=== PATIENT | female | born 1970 | race Caucasian/White ===

== ENCOUNTER 2016-07-20 07:46 | Day surgery (SDC) | payer BC ==
[2016-07-17 10:43] LABS: BILIRUBIN,URINE NEGATIVE (NEGATIVE); CLARITY/URINE CLEAR (CLEAR); COLOR,URINE YELLOW (YELLOW); GLUCOSE,URINE NEGATIVE (NEGATIVE); KETONES,URINE NEGATIVE (NEGATIVE); LEUKOCYTE ESTERASE ,URINE 1+ (NEGATIVE); NITRITE, URINE NEGATIVE (NEGATIVE); PROTEIN URINE NEGATIVE (NEGATIVE); UROBILINOGEN,URINE 0.2 (0.2-1.0)
[2016-07-17 10:45] LABS: BLOOD, URINE TRACE (NEGATIVE)
[2016-07-17 10:49] LABS: BASOPHILS # (AUTO) 0.1 K/uL (0.0-0.2); BASOPHILS % (AUTO) 1.3 % (0.0-2.0); EOSINOPHILS % (AUTO) 0.5 % (0.0-4.0); HEMATOCRIT 34.1 % (36-48); HEMOGLOBIN 10.9 g/dL (12.0-16.0); LYMPHOCYTES % (AUTO) 34.4 % (20.5-51.5); MEAN CORPUSCULAR HEMOGLOBIN 23 pg (27-31); MEAN CORPUSCULAR HGB CONC 32 % (32-36); MEAN CORPUSCULAR VOLUME 72 fL (79.0-98.0); MONOCYTES # (AUTO) 0.5 K/uL (0.0-1.0); MONOCYTES % (AUTO) 8.1 % (1.7-9.3); NEUTROPHILS # (AUTO) 3.2 K/uL (1.8-7.7); NEUTROPHILS % (AUTO) 55.7 % (40.0-70.0); PLATELET COUNT (AUTO) 274 K/uL (130-430); RED BLOOD CELL COUNT(AUTO) 4.71 MIL/uL (4.2-6.2); WHITE BLOOD COUNT (AUTO) 5.8 K/uL (4.8-10.8)
[2016-07-17 10:52] LABS: BACTERIA,URINE FEW /HPF (None Seen); CALCIUM 8.9 mg/dL (8.4-11.0); CREATININE 0.68 mg/dL (0.55-1.30); POTASSIUM 3.9 mmol/L (3.5-5.1); RBC,URINE 0-3 /HPF (0-3)
[2016-07-17 10:53] LABS: MUCUS,URINE None Seen /LPF (None Seen)
[~2016-07-20] VITALS: Ht 157.5 cm; Wt 65.8 kg
[2016-07-20] MEDS ORDERED: SEVOFLURANE 15 MIN GAS INH ONE (11:30)
[2016-07-20] MEDS ORDERED: PROPOFOL 200MG/ 20ML VIAL (DIPRIVAN) IV ONE (11:30)
[2016-07-20] MEDS ORDERED: METOCLOPRAMIDE HCL 10 MG/2 ML VIAL IVP ONE (11:30)
[2016-07-20] MEDS ORDERED: KETOROLAC TROMETHAMINE 30 MG VIAL IVP ONE (11:30)
[2016-07-20] MEDS ORDERED: ONDANSETRON HCL 4 MG/2 ML VIAL IVP ONE (11:30)
[2016-07-20] MEDS ORDERED: fentaNYL CITRATE 250 MCG/5 ML AMP IV ONE (11:30)
[2016-07-20] MEDS ORDERED: MIDAZOLAM HCL 5 MG/5 ML VIAL IVP ONE (11:30)
[2016-07-20] MEDS ORDERED: LR 1,000 ML IV SCH (11:45)
[2016-07-20] MEDS ORDERED: METOCLOPRAMIDE HCL 10 MG/2 ML VIAL IVP PRN (11:45)
[2016-07-20] MEDS ORDERED: MORPHINE 2 MG/ML INJ. SYRINGE IVP PRN ×3 (11:45)
[2016-07-20] MEDS ORDERED: OXYCODONE/ACETAMINOPHEN 5-325 TABLET PO PRN ×2 (12:00)
[2016-07-20] MEDS ORDERED: IBUPROFEN 800 MG TABLET PO PRN (12:00)
[2016-07-20] MEDS ORDERED: ONDANSETRON HCL 4 MG/2 ML VIAL IVP PRN (12:00)
[2016-07-20] MEDS ORDERED: MORPHINE 4 MG/ML INJ. SYRINGE ONE (12:43)
[2016-07-20 13:49] VITALS: BP_SYST 120
== END 2016-07-20 14:20 | disposition home or self-care (01) ==
LOC: SDS 07:46 → SMU 07:50 → SDS 14:20
PROVIDERS: ATTEND Obstetrics & Gynecology
DX: N92.0 Excessive and frequent menstruation with regular cycle (principal); D50.9 Iron deficiency anemia, unspecified; M54.16 Radiculopathy, lumbar region; E04.1 Nontoxic single thyroid nodule
CPT/HCPCS: 36415; 58563; 80048; 81000; 84703; 85025; 86886; 86900; 86901; 88305; J1885; J2250; J2270; J2405; J2704; J2765; J3010; J7120